=== PATIENT | male | born 1955 | race Caucasian/White ===

== ENCOUNTER 2021-05-09 07:47 | Day surgery (SDC) | payer BC, MEDICARE ==
--- NOTE | 2021-05-09 07:38 | PCM.PREANE ---
Preanesthetic Assessment - Anesthesia/Transfusion/Family Hx Anesthesia History: Prior Anesthesia Without Reaction Transfusion History: No Prior Transfusion(s) - Review of Systems General: No Symptoms Pulmonary: No Symptoms Cardiovascular: No Symptoms Gastrointestinal: No Symptoms Neurological: No Symptoms Other: Reports: None - Physical Assessment NPO Status Date: 05/09/21 NPO Status Time: 00:00 Height: 5 ft 9 in Weight: 183 lb Mental Status: Alert & Oriented x3 Airway Class: Mallampati = 2 Dentition: Reports: Normal Dentition ROM/Head Extension: Full Lungs: Clear to Auscultation, Normal Respiratory Effort Cardiovascular: Regular Rate, Regular Rhythm - Allergies Allergies/Adverse Reactions: Allergies Allergy/AdvReac Type Severity Reaction Status Date / Time No Known Allergies Allergy Verified 05/03/21 10:34 - Acknowledgements Anesthesia Type Planned: General Anesthesia Pt an Appropriate Candidate for the Planned Anesthesia: Yes Alternatives and Risks of Anesthesia Discussed w Pt/Guardian: Yes Pt/Guardian Understands and Agrees with Anesthesia Plan: Yes PreAnesthesia Questionnaire HEENT History: Reports: Cataract Other HEENT History: has upper dental bridge Cardiovascular History: Reports: None Respiratory History: Reports: Asthma Other Respiratory History: hx of asthma as a child- has not used an inhaler as an adult Gastrointestinal History: Reports: Colon Polyp, Diverticulosis Other Gastrointestinal History: was told by Dr. Gutierres that he has a "slight" Hiatal Hernia Genitourinary History: Reports: None Musculoskeletal History: Reports: Fracture, Osteoarthritis Other Musculoskeletal History: hx of fx ankle Neurological History: Reports: None Psychiatric History: Reports: None Endocrine/Metabolic History: Reports: None Hematologic History: Reports: None Immunologic History: Reports: None Oncologic (Cancer) History: Reports: None Dermatologic History: Reports: Other (See Below) Other Dermatologic History: slight rash on his ankles (from work boots) - Past Surgical History Head Surgeries/Procedures: Reports: None HEENT Surgical History: Reports: Cataract Surgery, LASIK, Tonsillectomy Cardiovascular Surgical History: Reports: None Respiratory Surgical History: Reports: None GI Surgical History: Reports: Colonoscopy, EGD Male Surgical History: Reports: Other (See Below) Other Male Surgeries/Procedures: excision of Spermatocele Endocrine Surgical History: Reports: None Neurological Surgical History: Reports: None Musculoskeletal Surgical History: Reports: None Oncologic Surgical History: Reports: None Dermatological Surgical History: Reports: None - SUBSTANCE USE Tobacco Use Status *Q: Former Tobacco User Tobacco Use Within Last Twelve Months: No Days Per Week of Alcohol Use: 7 Number of Drinks Per Day: 1 Total Drinks Per Week: 7 Recreational Drug Use History: No - HOME MEDS Home Medications: Home Meds Multivitamin 1 tab PO DAILY 05/03/21 [History] - CURRENT (IN HOUSE) MEDS Current Meds: Current Medications Lactated Ringer's (Ringers, Lactated) 1,000 mls @ 125 mls/hr IV ASDIRECTED OBI
[~2021-05-09 07:47] MED LIST: Lactated Ringers 1,000 ML IV SCH
[2021-05-09] MEDS ORDERED: Propofol 200 MG/20 ML SDV ONE (09:17)
[2021-05-09] MEDS ORDERED: Lidocaine 2% 5 ML SDV ONE (09:17)
--- NOTE | 2021-05-09 09:50 | PCM.OPNOTE ---
- General Post-Op/Procedure Note Date of Surgery/Procedure: 05/09/21 Operative Procedure(s): colonoscopy Findings: diverticulosis dictation number [id number] Pre Op Diagnosis: history of colon polyps Post-Op Diagnosis: diverticulosis Primary Surgeon: Sage Baird Pathology: none Complications: None Condition: Good
--- NOTE | 2021-05-09 10:05 | PCM48HPAN ---
Post Anesthesia Note - EVALUATION WITHIN 48HRS OF ANESTHETIC Vital Signs in Normal Range: Yes Patient Participated in Evaluation: Yes Respiratory Function Stable: Yes Airway Patent: Yes Cardiovascular Function Stable: Yes Hydration Status Stable: Yes Pain Control Satisfactory: Yes Nausea and Vomiting Control Satisfactory: Yes Mental Status Recovered: Yes Vital Signs: Last Vital Signs Temp 97.5 F 05/09/21 09:51 Pulse 98 05/09/21 10:01 Resp 15 05/09/21 10:01 BP 114/75 05/09/21 10:01 Pulse Ox 98 05/09/21 10:01
--- NOTE | 2021-05-09 10:05 | PCM.POSTAN ---
POST ANESTHESIA ASSESSMENT - MENTAL STATUS Mental Status: Alert, Oriented - VITAL SIGNS Vital Signs: Last Vital Signs Temp 97.5 F 05/09/21 09:51 Pulse 98 05/09/21 10:01 Resp 15 05/09/21 10:01 BP 114/75 05/09/21 10:01 Pulse Ox 98 05/09/21 10:01 - RESPIRATORY Respiratory Status: Respiratory Rate WNL, Airway Patent, O2 Saturation Stable - CARDIOVASCULAR CV Status: Pulse Rate WNL, Blood Pressure Stable - GASTROINTESTINAL GI Status: No Symptoms - POST OP HYDRATION Hydration Status: Adequate & Stable
[2021-05-09 10:17] VITALS: BP 113/71; PULSE 87
--- NOTE | 2021-05-09 15:10 | OR ---
SURGEON: SCOTT GILBERT MD DATE OF PROCEDURE: 05/09/2021 PREOPERATIVE DIAGNOSIS: History of colon polyp. POSTOPERATIVE DIAGNOSIS: Diverticulosis. PROCEDURE PERFORMED: Colonoscopy. PRIMARY SURGEON: Scott Gilbert MD ANESTHESIA: With anesthesiologist. EXTENT OF THE COLONOSCOPY: To the cecum. BOWEL PREP: Okay in the cecum and ascending colon, excellent in the rest of the colon. LIMITATIONS: The patient had some residual sticky stool on the wall in the cecum and beginning of the ascending colon. We got a good look at the mucosa, but a small polyp could have been missed. REASON FOR PROCEDURE: The patient is a pleasant 66-year-old gentleman whose last colonoscopy was about five years ago. He had a tubular adenoma in the cecum. He denies any blood in the stool. He did have an aunt with colon cancer. PROCEDURE IN DETAIL: Physical exam was performed. The major risks and benefits associated with the procedure were explained to the patient in detail. The patient verbalized understanding and was in agreement with the same. The patient was then connected to the appropriate monitoring devices, and IV was started. EKG, pulse oximetry, blood pressure, and capnography were monitored throughout the entire procedure. Continuous oxygen and sedation were provided by the anesthesiologist. The patient was placed in left lateral decubitus position. Sedation was began. After adequate sedation was achieved, a digital rectal exam was performed. No rectal masses or polyps were felt. Now, a well-lubricated Olympus colonoscope was inserted into the rectum and advanced under direct visualization to the level of the cecum. Cecum was identified by both visual and anatomic landmarks. The patient did have some liquid stool in the cecum which was suctioned and irrigated out, but he still had this slightly more sticky thin layer of mucus on the wall. I did spend quite a bit of time suctioning and irrigating this out to get a good fairly good look at the cecum and the ascending colon area, however, a small polyp could have been missed. Picture was taken of the cecum and ileocecal valve. Scope was then slowly withdrawn in a circular fashion looking at the color, texture, anatomy, and integrity of mucosa from the cecum to the anal canal. Again, the patient had some layers of more sticky mucousy stool in the cecum and beginning of the ascending colon. Rest of the colon prep was excellent. No polyps or lesions were seen. The patient did have some diverticulosis. Scope was retroflexed in the rectum. Scope was completely removed and procedure was terminated. ENDOSCOPIC DIAGNOSIS: Diverticulosis. RECOMMENDATIONS: Followup colonoscopy in five years, sooner if he develops signs and symptoms such as change in bowel habits or blood in the stool. MICH DIEGO /[id number]
== END 2021-05-09 10:40 | disposition home or self-care (01) ==
LOC: MW.SDS 07:47
PROVIDERS: ATTEND Surgery
DX: Z12.11 Encounter for screening for malignant neoplasm of colon (principal); K57.30 Diverticulosis of large intestine without perforation or abscess without bleeding; F17.210 Nicotine dependence, cigarettes, uncomplicated; Z86.010 Personal history of colon polyps; Z80.0 Family history of malignant neoplasm of digestive organs
CPT/HCPCS: 45378; J2704; J7120

== ENCOUNTER 2021-11-18 21:13 | Emergency (ER) | payer MEDICARE, OTHER ==
[2021-11-18 21:32] VITALS: BP 171/86; PULSE 93
== END 2021-11-18 22:33 | disposition home or self-care (01) ==
LOC: MW.ED 21:13
DX: S92.901K Unspecified fracture of right foot, subsequent encounter for fracture with nonunion (principal)
CPT/HCPCS: 73610-26-RT; 73610-RT; 99283-25